=== PATIENT | female | born 1945 | race Caucasian/White ===

== ENCOUNTER → 2020-10-19 | Outpatient (CLI) | payer MEDICARE, OTHER ==
[~2020-10-19] MED LIST: AMLO1TAB24 PO; HYDR-3490 PO; LATA0.0015 OU; LETR2.5T2 PO; POTA20TA6 PO; TIMO0.5S29 OU
--- NOTE | 2020-10-19 14:40 | RADONC.CN ---
Radiation Oncology Hx/Consult Radiation Oncology Consult Date of Service: Oct 19, 2020 Pt Identifier Yoselin Valverde is a 74 year old female with screening mammogram detected left breast cancer [id number] ER/UT+ HER2- Grade 2, 3/14 nodes involved HUBERT-. She is s/p BL mastectomy without reconstruction with at [facility] on 09/09/20. Oncotype score was 21. She has seen Dr. Membreno and has started AI. She is seen today for consideration of adjuvant RT. Diagnosis/Treatment History Oncologic History 05/25/20 Screening mammogram microcalcifications left breast 06/03/20 Diagnostic mammogram with 6:00 left breast abnormality 06/29/20 Biopsy with mixed IDC/ILC ER/UT+ HER2- Grade 2 09/09/20 BL mastectomy, left ALND: Right breast negative, left breast [id number] 3/14 nodes+ HUBERT- margins negative Oncotype score [address] Membreno 10/04/20 Breast history: (1 interrupted ) Menses @ 18 Menopause @ 54 No OCP No HRT No IVF Interval History Here with her . She is Mennonite. 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 She reports that she is tolerating the AI without side effects at this time. She does have significant LUE edema since surgery. This is painful. Has recently established with OT for this. Plan is to reduce the swelling with wraps starting soon. She is interested in a lymphedema pump. She has intact energy and stable weight and appetite. Past Medical History: HPL HTN TIA Past Surgical History: Carpal tunnel Colonoscopy Family History: Mother breast cancer Social History: Never smoker Never drinker Allergies / Meds Allergies: Coded Allergies: No Known Allergies (Verified Allergy, Unknown, 10/04/20) Home Meds Active Scripts Letrozole (Letrozole) 2.5 Mg Tablet, 1 TAB PO DAILY for 30 Days, #30 TAB 2 Refills Prov:BIA MEMBRENO MD FACP 10/04/20 Reported Medications Amlodipine Besylate (Amlodipine Besylate) 5 Mg Tablet, 1 TAB PO DAILY 10/04/20 Latanoprost/Pf (Latanoprost 0.005% Eye Drop) 7.5 Ml Drops, 1 DROP OU QPM 10/04/20 Hydrochlorothiazide (Hydrochlorothiazide) 25 Mg Tablet, 1 TAB PO DAILY 10/04/20 Timolol Maleate (Timolol Maleate) 0.5% 5ML Drops, 1 DROP OU QAM 10/04/20 Potassium Chloride (Potassium Chloride) 20 Meq Tab.er.prt, 1 TAB PO DAILY 10/04/20 Review of Systems Constitutional: Denies: Fatigue, Weight Loss Eyes: Denies: Pain HEENT: Denies: Head Aches Skin: Denies: Rash Pulmonary: Denies: Dyspnea, Cough Cardiovascular: Denies: Chest Pain, Palpitations Breast: Denies: Breast Skin Changes Gastrointestinal: Denies: Abdominal Pain Musculoskeletal: Reports: Arm pain; Denies: Neck pain Neurological: Denies: Weakness, Numbness Psych: Reports: Mood Normal Vital Signs Wt 183 lbs T97.2 P 70 RR 18 BP 142/81 O2 95% Pain 5 (arm) Fatigue 0 General Exam: Positive: Alert, Cooperative, No Acute Distress Eye Exam: Positive: PERRLA, EOMI ENT EXAM: Positive: Atraumatic Neck Exam: Positive: Supple Chest Exam: Positive: Clear to auscultation Heart Exam: Positive: Rate Normal Breast Exam: Positive: Other Breast Findings (s/p BL mastectomy incisions well-healed, no palpable lesions BL CW and axillae. CTCAE grade 2 lympedema LUE. Arm is tender, but not red.) Abdomen Exam: Positive: Soft Skin Exam: Positive: Nl turgor and temperature Neuro Exam: Positive: Normal Gait, Normal Speech, Cranial Nerves 3-12 NL Psych Exam: Positive: Mental status NL Diagnostic and Laboratory Diagnostic Review Radiologic images, relevant labs and pathology reports were personally reviewed and discussed with Ms. Valverde. Assessment and Plan Impression Ms. Valverde is a 74 year old female with a history of screening mammogram detected left breast cancer [id number] ER/UT+ HER2- Grade 2, 3/14 nodes involved HUBERT-. She is s/p BL mastectomy without reconstruction with at [facility] on 09/09/20. Oncotype score was 21. She has seen Dr. Membreno and has started AI. She is seen today for consideration of adjuvant RT. Stage Left overlapping (lower quadrant) breast cancer mixed ILC/IDC [id number] ER/UT+ HER2- Grade 2 stage IB Performance Status ECOG 1 Plan We had an extensive discussion with Ms. Valverde regarding the diagnosis at hand and available therapeutic options. She is having no ill effects from AI. Has DEXA pending. She does have significant lymphedema in the LUE, she has established with OT and plan is to reduce it over the next 4 weeks with wraps. I endorse this plan. I also think she would benefit longer-term from a lymphedema pump and sleeves, which I would be happy to prescribe. Will call Janie about this. With respect to PMRT I recommend we proceed in the coming weeks due to [address] on pathology. Per the MA20 and EBCTCG studies there is a BCSS and OS benefit to adjuvant RT in this setting. I will give 50.4 Gy in 28 fractions to the chest wall and lesser dose to the axillary bed at risk, supraclavicular fossa and the IMN chain. Given that this is a left sided cancer, I will use DIBH technique and VMAT planning to spare heart and lung dose. We discussed the logistics of receiving radiation therapy in detail including the need for a 1-time planning session. This can occur in the next 2 weeks. I would like to see some improvement in her lymphedema before proceeding with treatment. I reviewed the side effects of RT including fatigue, skin reaction and worsening lymphedema. After discussing the risks, benefits and alternatives to radiation therapy, Ms. Valverde was amenable to pursuing radiotherapy. All questions were answered to the patient's satisfaction. We instructed the patient that if there were any questions,concerns or changes in clinical status in the interim to contact us. Recommendations PMRT 50.4 Gy in 28 fractions with VMAT and DIBH technique Simulation in the next 2 weeks Will reach out to OT regarding plan for lymphedema management May benefit from a lymphedema pump Billing Statement Total time of [45] minutes was spent preparing for the visit [3], obtaining HPI [5], examining the patient [3], reviewing diagnostic tests [7], discussing management options [13], coordinating care [3], and writing this note [11]. RODERICK FAY MD Oct 19, 2020 14:40
== END ==
LOC: M ONCR 12:46
PROVIDERS: ATTEND General Practice
DX: C50.912 Malignant neoplasm of unspecified site of left female breast (principal); Z79.899 Other long term (current) drug therapy; Z85.3 Personal history of malignant neoplasm of breast; Z90.13 Acquired absence of bilateral breasts and nipples

== ENCOUNTER 2020-11-12 08:25 | Outpatient (RCR) | payer MEDICARE, OTHER | END 2020-11-16 | LOC: M PT 08:25 | PROVIDERS: ATTEND Internal Medicine Medical Oncology | DX: I89.0 Lymphedema, not elsewhere classified (principal) ==

== ENCOUNTER → 2020-11-16 | Outpatient (RCR) | payer MEDICARE, OTHER ==
[~2020-11-16] MED LIST changes: +POTA-151 PO; -POTA20TA6 PO
== END ==
LOC: M ONCR 11-02 10:01
PROVIDERS: ATTEND General Practice
DX: C50.812 Malignant neoplasm of overlapping sites of left female breast (principal)

== ENCOUNTER 2020-11-24 08:50 | Outpatient (RCR) | payer MEDICARE, OTHER ==
[~2020-11-24 08:50] MED LIST changes: -POTA-151 PO; +POTA20TA6 PO
== END 2020-12-16 ==
LOC: M PT 08:50
PROVIDERS: ATTEND Internal Medicine Medical Oncology
DX: I89.0 Lymphedema, not elsewhere classified (principal)

== ENCOUNTER → 2020-12-16 | Outpatient (RCR) | payer MEDICARE, OTHER | LOC: M ONCR 11-17 08:26 | PROVIDERS: ATTEND General Practice | DX: C50.812 Malignant neoplasm of overlapping sites of left female breast (principal) ==

== ENCOUNTER 2020-12-24 07:41 | Outpatient (RCR) | payer MEDICARE, OTHER ==
[2021-01-05] MEDS ORDERED: LETR2.5T2 PO (08:16)
== END 2021-01-16 ==
LOC: M ONCR 07:41
PROVIDERS: ATTEND General Practice
DX: C50.812 Malignant neoplasm of overlapping sites of left female breast (principal)

== ENCOUNTER 2021-06-22 09:14 | Outpatient (RCR) | payer MEDICARE, OTHER | END 2021-07-16 | LOC: M PT 09:14 | PROVIDERS: ATTEND Internal Medicine Medical Oncology | DX: I89.0 Lymphedema, not elsewhere classified (principal) ==

== ENCOUNTER → 2021-06-22 | Outpatient (CLI) | payer MEDICARE, OTHER ==
[~2021-06-22] MED LIST changes: +POTA-151 PO; -POTA20TA6 PO
== END ==
LOC: M ONCR 08:35
PROVIDERS: ATTEND General Practice
DX: C50.812 Malignant neoplasm of overlapping sites of left female breast (principal); I89.0 Lymphedema, not elsewhere classified; C77.1 Secondary and unspecified malignant neoplasm of intrathoracic lymph nodes; Z79.811 Long term (current) use of aromatase inhibitors; Z90.13 Acquired absence of bilateral breasts and nipples; Z92.3 Personal history of irradiation

== ENCOUNTER → 2021-12-21 | Outpatient (CLI) | payer MEDICARE, OTHER | LOC: M ONCR 09:29 | PROVIDERS: ATTEND General Practice | DX: Z08 Encounter for follow-up examination after completed treatment for malignant neoplasm (principal); I89.0 Lymphedema, not elsewhere classified; Z85.3 Personal history of malignant neoplasm of breast; Z79.811 Long term (current) use of aromatase inhibitors; Z79.899 Other long term (current) drug therapy; Z90.13 Acquired absence of bilateral breasts and nipples; Z92.3 Personal history of irradiation ==

== ENCOUNTER 2022-07-03 10:25 | Outpatient (RCR) | payer MEDICARE, OTHER ==
[~2022-07-03 10:25] MED LIST changes: +TIMO0.5S20 OU; -TIMO0.5S29 OU
== END 2022-07-16 ==
LOC: M PT 10:25
PROVIDERS: ATTEND Internal Medicine Medical Oncology
DX: I89.0 Lymphedema, not elsewhere classified (principal)

== ENCOUNTER → 2022-12-21 | Outpatient (CLI) | payer MEDICARE, OTHER | LOC: M ONCR 09:12 | PROVIDERS: ATTEND General Practice | DX: C50.812 Malignant neoplasm of overlapping sites of left female breast (principal); I97.2 Postmastectomy lymphedema syndrome; Z71.2 Person consulting for explanation of examination or test findings; Z79.811 Long term (current) use of aromatase inhibitors; Z79.899 Other long term (current) drug therapy; Z90.13 Acquired absence of bilateral breasts and nipples; Z92.3 Personal history of irradiation ==

== ENCOUNTER 2023-07-04 08:18 | Outpatient (RCR) | payer MEDICARE ==
[~2023-07-04 08:18] MED LIST changes: +LATA1DRO OU
== END 2023-07-17 ==
LOC: M PT 08:18
PROVIDERS: ATTEND Internal Medicine Medical Oncology
DX: I89.0 Lymphedema, not elsewhere classified (principal)

== ENCOUNTER → 2023-12-21 | Outpatient (CLI) | payer MEDICARE | LOC: M ONCR 09:01 | PROVIDERS: ATTEND General Practice | DX: Z08 Encounter for follow-up examination after completed treatment for malignant neoplasm (principal); I89.0 Lymphedema, not elsewhere classified; Z85.3 Personal history of malignant neoplasm of breast; Z79.811 Long term (current) use of aromatase inhibitors; Z79.899 Other long term (current) drug therapy; Z90.13 Acquired absence of bilateral breasts and nipples; Z92.3 Personal history of irradiation ==

== ENCOUNTER → 2024-12-23 | Outpatient (CLI) | payer MEDICARE | LOC: M ONCR 09:08 | PROVIDERS: ATTEND General Practice | DX: C50.812 Malignant neoplasm of overlapping sites of left female breast (principal); Z90.13 Acquired absence of bilateral breasts and nipples; Z92.3 Personal history of irradiation; Z79.811 Long term (current) use of aromatase inhibitors; Z79.899 Other long term (current) drug therapy; I89.0 Lymphedema, not elsewhere classified ==